=== PATIENT | male | born 1975 | race Caucasian/White ===

== ENCOUNTER 2019-02-11 09:21 | Emergency (ER) | payer BC ==
[~2019-02-11] VITALS: Ht 167.6 cm; Wt 91.0 kg
[~2019-02-11 09:21] MED LIST: HYDR-4011 PO; IBUP-1542 PO; ONDA8TAB9 PO; OXYC5CAP17 PO; TAMS-14 PO
[2019-02-11 09:23] VITALS: Ht 167.6 cm; Wt 91.0 kg
[2019-02-11] MEDS ORDERED: SOD CHLORIDE 0.9% 1,000 ML IV STA (09:49)
[2019-02-11] MEDS ORDERED: KETOROLAC 15 MG INJ IV STA (09:49)
[2019-02-11] MEDS ORDERED: ONDANSETRON 4 MG INJ IV STA (09:49)
[2019-02-11] MEDS ORDERED: FENTAnyl 50 MCG/ML VIAL IV ONE (10:00)
--- NOTE | 2019-02-11 10:04 | ERD ---
ER Documentation Chief Complaint Chief Complaint RIGHT FLANK/ABD. PAIN WITH N/V SINCE AM HPI This is a 43-year-old previously healthy male who presents for right-sided flank pain radiating into the right groin with nausea and an episode of nonbilious nonbloody vomiting beginning earlier this morning. The patient's symptoms started suddenly. He is having trouble finding a position that is comfortable for him. He has never had pain like this before. He does not endorse a history of kidney stones. The patient does not endorse any alleviating or exacerbating factors. The patient denies any changes to urination. He reports urinating approximately 2 hours ago without difficulty. He denies dysuria or hematuria or urgency or frequency. He denies black or bloody or tarry stools. He denies constipation or diarrhea. The patient denies feeling sick recently. The patient denies fever or chills. The patient has had no headache or vision changes. The patient does not endorse neck or back pain. The patient denies lightheadedness or dizziness. The patient has had no chest pain or trouble breathing. The patient has had no focal deficits. The patient has had no weakness or numbness or tingling to the face or extremities. ROS All systems reviewed and are negative except as per history of present illness. Medications Home Meds No Active Prescriptions or Reported Meds Allergies Allergies: Coded Allergies: No Known Allergy (Unverified , 02/11/19) PMhx/Soc Medical and Surgical Hx: pt denies Medical Hx, pt denies Surgical Hx History of Surgery: No Hx Neurological Disorder: No Hx Respiratory Disorders: No Hx Cardiac Disorders: No Hx Psychiatric Problems: No Hx Miscellaneous Medical Probl: No Hx Alcohol Use: No Hx Substance Use: No Hx Tobacco Use: No FmHx Family History: No diabetes Physical Exam Vitals Vital Signs Date Temp Pulse Resp B/P (MAP) Pulse Ox O2 O2 Flow FiO2 Time Delivery Rate 02/11/19 97.6 70 20 179/121 100 09:23 (140) Physical Exam Const: No acute distress Head: Atraumatic Eyes: Normal Conjunctiva ENT: Normal External Ears, Nose and Mouth. Neck: Full range of motion. No meningismus. Resp: Clear to auscultation bilaterally Cardio: Regular rate and rhythm, no murmurs Abd: Soft, non distended. Mild right lower quadrant abdominal tenderness. No guarding or rebound. Normal bowel sounds Skin: No petechiae or rashes Back: No midline tenderness. Right-sided CVA tenderness. Ext: No cyanosis, or edema Neur: Awake and alert Psych: Normal Mood and Affect Result Diagram: 02/11/19 0950 02/11/19 0950 Results 24 hrs Laboratory Tests Test 02/11/19 09:50 02/11/19 10:40 White Blood Count 12.6 10^3/ul Red Blood Count 5.91 10^6/ul Hemoglobin 15.3 g/dl Hematocrit 47.1 % Mean Corpuscular Volume 79.7 fl Mean Corpuscular Hemoglobin 25.9 pg Mean Corpuscular Hemoglobin Concent 32.5 g/dl Red Cell Distribution Width 13.1 % Platelet Count 282 10^3/UL Mean Platelet Volume 9.7 fl Immature Granulocytes % 0.600 % Neutrophils % 82.1 % Lymphocytes % 11.5 % Monocytes % 5.0 % Eosinophils % 0.2 % Basophils % 0.6 % Nucleated Red Blood Cells % 0.0 /100WBC Immature Granulocytes # 0.070 10^3/ul Neutrophils # 10.4 10^3/ul Lymphocytes # 1.5 10^3/ul Monocytes # 0.6 10^3/ul Eosinophils # 0.0 10^3/ul Basophils # 0.1 10^3/ul Nucleated Red Blood Cells # 0.0 10^3/ul Sodium Level 137 mmol/L Potassium Level 4.1 mmol/L Chloride Level 101 mmol/L Carbon Dioxide Level 26 mmol/L Anion Gap 10 Blood Urea Nitrogen 15 mg/dl Creatinine 1.12 mg/dl Est Glomerular Filtrat Rate mL/min > 60 mL/min Glucose Level 166 mg/dl Calcium Level 9.7 mg/dl Total Bilirubin 1.8 mg/dl Direct Bilirubin 0.00 mg/dl Indirect Bilirubin 1.8 mg/dl Aspartate Amino Transf (AST/SGOT) 38 IU/L Alanine Aminotransferase (ALT/SGPT) 31 IU/L Alkaline Phosphatase 60 IU/L Total Protein 8.1 g/dl Albumin 4.6 g/dl Globulin 3.50 g/dl Albumin/Globulin Ratio 1.31 Lipase 83 U/L Urine Color YELLOW Urine Clarity SLIGHTLY CLOUDY Urine pH 8.0 Urine Specific [place] 1.012 Urine Ketones 1+ mg/dL Urine Nitrite NEGATIVE mg/dL Urine Bilirubin NEGATIVE mg/dL Urine Urobilinogen NEGATIVE mg/dL Urine Leukocyte Esterase NEGATIVE Mary/ul Urine Microscopic RBC 7 /HPF Urine Microscopic WBC 1 /HPF Urine Bacteria FEW /HPF Urine Hemoglobin NEGATIVE mg/dL Urine Glucose 1+ mg/dL Urine Total Protein NEGATIVE mg/dl Current Medications Medications Dose Sig/Elana Start Time Status Last (Trade) Ordered Route PRN Stop Time Admin Dose Reason Admin Sodium 1,000 ml @ Q1H STAT 02/11/19 DC 02/11/19 Chloride 1,000 mls/hr IV 09:49 02/11/19 09:57 10:48 Ondansetron 4 mg ONCE STAT 02/11/19 DC 02/11/19 HCl (Zofran IV 09:49 02/11/19 09:56 Inj) 09:51 Ketorolac 15 mg ONCE STAT 02/11/19 DC 02/11/19 Tromethamine IV 09:49 02/11/19 09:56 (Toradol) 09:51 Fentanyl 50 mcg ONCE ONCE 02/11/19 DC 02/11/19 (Sublimaze) IV 10:00 02/11/19 09:56 10:01 Procedures/MDM MDM The patient's presentation warrants further investigation. Previous medical records, if available, were reviewed. LABS The patient's laboratory testing was obtained and reviewed. No emergent treatmen t was required unless described below. CBC: Mild leukocytosis, likely reactive. No E/o systemic infection or severe anemia or thrombocytopenia Chemistry: No E/o severe acidosis or alkalosis or renal failure or liver disease or diabetic ketoacidosis Lipase: No E/o pancreatitis Urine: No E/o acute infection or hematuria IMAGING Imaging and Radiology interpretation reviewed. CT abdomen pelvis FINDINGS: CT abdomen: LOWER THORAX: Lung bases are clear. LIVER AND GALLBLADDER: There is a 12 mm low density lesion at the dome of the liver which is too small to definitively characterize, presumably a cyst. Diminished attenuation throughout the liver is consistent with diffuse steatosis. Gallbladder is unremarkable. SPLEEN: Normal. PANCREAS: Normal. ADRENAL GLANDS: Normal. KIDNEYS: There is moderate right hydronephrosis and there is associated perinephric fluid stranding. The right ureter is also dilated. A punctate 2 mm calculus is identified at the right vesicoureteral junction. No additional renal calcifications identified. Left kidney and ureter are unremarkable. VASCULATURE: Abdominal aorta is normal in caliber. LYMPH NODES: No significant retroperitoneal or mesenteric lymphadenopathy. BOWEL AND MESENTERY: Stomach and small bowel are unremarkable. A normal appendix is identified. The large bowel is unremarkable. CT pelvis: The urinary bladder is unremarkable. There is no free fluid in the pelvis. No significant pelvic lymphadenopathy. Bones: Regional bones and superficial soft tissues are grossly unremarkable. IMPRESSION: 1. Punctate 2 mm calculus at the right ureteral junction. Moderate right hydroureteronephrosis. 2. No additional renal calcifications. 3. Mild hepatic steatosis. Electronically viewed and signed by Physician Lon on 02/11/2019 10:22 TREATMENT/DISPOSITION The patient presents for right-sided flank pain. I was concerned about the possibility of nephrolithiasis and renal colic. A CT was completed that revealed a punctate 2 mm calculus at the right ureteral junction with moderate hydroureteronephrosis. Given the size of the kidney stone, I do believe that outpatient management is appropriate at this time. The patient does not have symptoms concerning for a urinary tract infection. I do not suspect pyelonephritis. The patient does not have any evidence of peritonitis. The patient does not have clinical symptoms concerning for mesenteric ischemia or ischemic colitis. The patient does not have right upper quadrant tenderness, and I have low suspicion for gallstones, cholecystitis or biliary colic. The patient does not have any epigastric pain. I have low suspicion for gastritis, PUD or GERD. The patient does not have left upper quadrant tenderness. I have low suspicion for pancreatitis. The patient does not have any right lower quadrant tenderness, or periumbilical tenderness. I have low suspicion for appendicitis. The patient does not have any left lower quadrant tenderness, and I have low suspicion for diverticulosis or diverticulitis. The patient does not have any palpable pulsatile mass or severe abdominal pain radiating to the back. I have low suspicion for aortic aneurysm, dissection or rupture. The patient was treated with IV fluids, Toradol, Zofran and a dose of fentanyl with improvement of his pain. DISCHARGE Upon reevaluation of the patient, symptoms have improved. No emergent diagnoses were identified. At this time, I feel that the patient stable for discharge. The patient was instructed to follow-up with a primary care physician in 1-3 days. The patient will be given strict precautions with which to return to the emergency department. Prescriptions: Ibuprofen, oxycodone, Zofran, Flexeril The patient's blood pressure was elevated at greater than 120/80 while in the emergency department. The patient was otherwise stable with no evidence of hypertensive urgency or emergency. The patient does not require admission for blood pressure control. I have discussed with the patient the risks of hypertension. I have instructed the patient to return to the ER for any new or worsening symptoms including chest pain, shortness of breath, headache, blurred vision, confusion, nausea, vomiting or LOC. I have advised the patient to follow up with the primary care physician for outpatient monitoring and treatment for hypertension in 1-3 days. DISCLAIMER Inadvertent spelling and grammatical errors are likely due to EHR/dictation software use and do not reflect on the overall quality of patient care. Note that the electronic time recorded on this note does not necessarily reflect the actual time of the patient encounter. Departure Diagnosis: Primary Impression: Renal colic on right side Additional Impressions: Flank pain Nephrolithiasis Nausea & vomiting Vomiting type: unspecified Vomiting Intractability: non-intractable Qualified Codes: R11.2 - Nausea with vomiting, unspecified Leukocytosis Leukocytosis type: unspecified Qualified Codes: D72.829 - Elevated white blood cell count, unspecified Hematuria Hematuria type: other microscopic Qualified Codes: R31.29 - Other microscopic hematuria Condition: Stable Patient Instructions: Kidney Stone W/ Colic, Nausea and Vomiting-Adult Additional Instructions: Thank you for for coming to [facility] for your care today. Please ask your nurse or provider if you have questions about your care today and do not leave until all your questions have been answered. Please use any medications given as directed and follow-up with your doctor (or the doctor you were referred to) in the next 1-3 days. If you do not have a primary care doctor you may follow up at the [facility] or count includes the [facility] (listed below). You may also use motrin and tylenol as needed for fever and/or pain unless inst ructed otherwise by your provider or nurse. Indications for more urgent follow- up have been discussed, but you may return to the Emergency Department at ANY time for any worrisome or worsening symptoms. If you have abdominal pain, please know that no test or exam you received is perfect and you should follow up within 8 hours for continued pain. If you had any imaging studies today, such as an X-Ray or CT Scan, these studies will be reviewed later by a radiologist. You will be called if there are important findings that were not identified today, so make sure the contact information you provided at registration is correct. If you received any narcotic pain control medicine today, such as Vicodin, Morphine or Dilaudid, your coordination and judgment may be affected for a number of hours. Please do not drive or operate heavy machinery, and you may want someone to assist you at home. If you were given a prescription for narcotic medication, be aware that it is very addictive- use sparingly and only if necessary. PLEASE SEEK FURTHER EVALUATION AND MANAGEMENT AT YOUR DOCTORS OFFICE WITHIN THE NEXT 1-3 DAYS. IT IS YOUR RESPONSIBILITY TO MAKE AN APPOINTMENT FOR FOLOW-UP CARE. IF YOU HAVE A PRIMARY DOCTOR, PLEASE CALL THEIR OFFICE TO SCHEDULE AN APPOINTMENT FOR FOLLOW UP. IF YOU DO NOT HAVE A PRIMARY DOCTOR YOU CAN CALL OUR PHYSICIAN REFERRAL HOTLINE AT IF YOU CAN NOT AFFORD TO SEE A PHYSICIAN YOU CAN CHOSE FROM THE FOLLOWING [facility] CLINICS: [facility] [address] [facility] [address] [facility] [facility] [address] [facility] [address] [facility] [address] [facility]. [facility]. [address] ABHINAV JAY MD Feb 11, 2019 10:04
[2019-02-11 11:49] VITALS: BP 130/78; PULSE 80; RESP 18
== END 2019-02-11 11:55 | disposition home or self-care (01) ==
LOC: E/R 09:21
DX: N20.0 Calculus of kidney (principal); N23 Unspecified renal colic; D72.829 Elevated white blood cell count, unspecified; R31.29 Other microscopic hematuria
CPT/HCPCS: 36415; 74176; 80053; 81001; 83690; 85025; 96374; 96375; 99285; J1885; J2405; J3010; J7030; 81003

== ENCOUNTER 2019-02-16 17:39 | Emergency (ER) | payer BC ==
[~2019-02-16] VITALS: Ht 172.7 cm; Wt 93.8 kg
[2019-02-16 17:45] VITALS: BP 154/98; PULSE 83; RESP 17; Ht 172.7 cm; Wt 93.8 kg
--- NOTE | 2019-02-16 17:53 | ERD ---
ER Documentation Chief Complaint Chief Complaint PT HERE FOR MED CHANGE/REFILL HPI 43-year-old male presents for follow-up on back pain and nephrolithiasis diagnosed 5 days ago. He is prescribed oxycodone 5 mg IR but has not been able to find the medication at any pharmacy. He has mild persistent pain. Denies fevers, vomiting, shortness of breath, additional symptoms. ROS All systems reviewed and are negative except as per history of present illness. Medications Home Meds Active Scripts Hydrocodone/Acetaminophen (Harrington 5-325 Tablet) 1 Each Tablet, 1 TAB PO Q6H PRN for PAIN, #10 TAB Prov:NICKI FERNANDEZ MD 02/16/19 Ondansetron Hcl* (Zofran*) 8 Mg Tablet, 8 MG PO Q6H PRN for NAUSEA AND OR VOMITING, #20 TAB Prov:ABHINAV ANDERSON MD 02/11/19 Tamsulosin Hcl* (Flomax*) 0.4 Mg Cap.er.24h, 0.4 MG PO BID for 7 Days, CAP Prov:ABHINAV ANDERSON MD 02/11/19 Oxycodone Hcl* (IR) (Oxycodone Hcl*) 5 Mg Capsule, 5 MG PO Q8 PRN for SEVERE PAIN LEVEL 7-10, #9 TAB Prov:ABHINAV ANDERSON MD 02/11/19 Ibuprofen* (Motrin*) 600 Mg Tab, 600 MG PO Q6H PRN for PAIN AND/OR INFLAMMATION, #30 TAB Prov:ABHINAV ANDERSON MD 02/11/19 Allergies Allergies: Coded Allergies: No Known Allergy (Unverified , 02/11/19) PMhx/Soc Medical and Surgical Hx: pt denies Medical Hx, pt denies Surgical Hx History of Surgery: No Hx Neurological Disorder: No Hx Respiratory Disorders: No Hx Cardiac Disorders: No Hx Psychiatric Problems: No Hx Miscellaneous Medical Probl: No Hx Alcohol Use: No Hx Substance Use: No Hx Tobacco Use: No Smoking Status: Never smoker FmHx Family History: No diabetes, No coronary disease, No other Physical Exam Vitals Vital Signs Date Temp Pulse Resp B/P (MAP) Pulse Ox O2 O2 Flow FiO2 Time Delivery Rate 02/16/19 97.8 83 17 154/98 98 17:45 (116) Physical Exam Const: No acute distress Head: Atraumatic Eyes: Normal Conjunctiva ENT: Normal External Ears, Nose and Mouth. Neck: Full range of motion. No meningismus. Resp: Clear to auscultation bilaterally Cardio: Regular rate and rhythm, no murmurs Abd: Soft, non tender, non distended. Normal bowel sounds Skin: No petechiae or rashes Back: No midline or flank tenderness Ext: No cyanosis, or edema Neur: Awake and alert Psych: Normal Mood and Affect Procedures/MDM Patient presents with a history of kidney stones. Is no signs of septic stone, SIRS criteria, significant abdominal pain, additional concerning signs or symptoms. His prescription will be exchanged for medication which should be available at pharmacy, Har[place] 5 mg #10. Oxycodone prescription destroyed. Patient is advised to return for fevers, vomiting, shortness breath, new worsening symptoms with primary doctor. Patient counseled on adverse effects of narcotic pain medication and encouraged to not take medicine if symptoms resolve.. Cures review negative. He was advised to follow aftercare instructions from previous visit for nephrolithiasis. Departure Diagnosis: Primary Impression: Kidney stone Additional Impression: Encounter for medication refill Condition: Stable Patient Instructions: Taking Medicine Safely NICKI FERNANDEZ MD Feb 16, 2019 17:53
== END 2019-02-16 17:50 | disposition home or self-care (01) ==
LOC: E/R 17:39
DX: N20.0 Calculus of kidney (principal)
CPT/HCPCS: 99281